=== PATIENT | male | born 1995 | race African-American/Black ===

== ENCOUNTER 2016-11-11 13:51 | Emergency (ER) ==
[2016-11-11 14:05] VITALS: BP 135/86
--- NOTE | 2016-11-11 14:28 | PROVIDER DOCUMENTATION ---
HPI-EENT General - General Chief Complaint: Cold Symptoms Stated Complaint: COLD SX Time Seen by Provider: 11/11/16 14:11 Source: patient Allergies/Adverse Reactions: Patient Allergies Allergy/AdvReac Type Severity Reaction Status Date / Time erythromycin base Allergy ANAPHYLAXIS Verified 01/18/16 14:53 Penicillins Allergy ANAPHYLAXIS Verified 01/18/16 14:53 Home Medications: Home Medication List Medication Instructions Recorded Confirmed Last Taken Type Prednisone 20 mg PO DAILY #12 tablet 11/11/16 Unknown Rx - History of Present Illness-EENT General Nature of Presenting Problem: 21 y/o WM c/o CP with leaning forward, intermittent epistaxis, sinus congestion x 2 weeks. Pt states he was treated for sinusitis about one month ago, but only took 4-5 days of Abx. Denies any fever/chills. States using mucinex and nasonex. Denies any other sxs. Review of Systems - Adult - REVIEW OF SYSTEMS - ADULT Constitutional: reports: no symptoms reported. denies: chills, fever Eyes: reports: no symptoms reported. denies: blurred vision, double vision Ears, Nose, Mouth & Throat: reports: see HPI, epistaxis, sinus problem. denies : ear pain, throat pain Cardiovascular: reports: no symptoms reported. denies: chest pain, palpitations Respiratory: reports: no symptoms reported. denies: dyspnea on exertion, shortness of breath Gastrointestinal: reports: no symptoms reported. denies: nausea, vomiting Genitourinary: reports: no symptoms reported. denies: dysuria, frequency Musculoskeletal: reports: no symptoms reported. denies: joint pain, joint swelling, muscle aches Integumentary: reports: no symptoms reported. denies: nail changes, rash Neurological: reports: no symptoms reported. denies: headache/migraines, numbness, paresthesia Psychiatric: reports: no symptoms reported Endocrine: reports: no symptoms reported. denies: cold intolerance, heat intolerance Hematologic/Lymphatic: reports: no symptoms reported. denies: easy bruising, prolonged bleeding Allergic/Immunologic: reports: no symptoms reported All Other Systems: Reviewed and Negative Past History - Adult - PAST MEDICAL HISTORY-ADULT Review of Records: reports: Nursing Assessment Review, Medications Reviewed Major Childhood Illnesses: reports: denies history Other Conditions: reports: denies history - PRIOR SURGERIES/PROCEDURES Surgical/Procedure History: reports: hernia repair - PRIOR HOSPITALIZATIONS Prior Hospitalizations: reports: none - IMMUNIZATION STATUS Childhood Immunizations: See Nurse Assessment Flu Vaccine: See Nurse Assessment - FAMILY HISTORY Family History: reviewed, not pertinent - SOCIAL HISTORY Smoking: quit greater than 1 year Occupation: [employer] through Physical Exam- EENT - Physical Exam EENT Initial Vital Signs Reviewed: Yes General Appearance: alert, no apparent distress, thin Eye Exam: bilateral eye: normal inspection Ear Exam: bilateral ear: auricle normal Nasal Exam: normal inspection. negative: sinus tenderness Throat Exam: normal mouth inspection, pharynx normal Neck: supple, normal inspection. negative: lymphadenopathy Respiratory: lungs clear, normal breath sounds. negative: crackles, rales, rhonchi, stridor, wheezing, plerual rub Cardiovascular: regular rate, rhythm. negative: bradycardia, tachycardia Back Exam: normal inspection Extremity: normal gait Integumentary: normal color, normal turgor, warm/dry Neurologic: negative: aphasia Psych/Mental Status: normal mood/affect, normal thought content, normal thought process, oriented x 3 Progress - PLAN OF CARE/RESULTS Progress/Plan/Lab Results: Orders Category Date Time Status CHEST-2 VIEWS [RAD] Stat Exams 11/11/16 14:18 Draft EKG [EKG] Stat Ther 11/11/16 14:31 Draft Vital Signs Temp Pulse Resp BP Pulse Ox 11/11/16 14:02 97.1 F L 91 H 20 135/86 99 erythromycin base Allergy (Verified 01/18/16 14:53) ANAPHYLAXIS Penicillins Allergy (Verified 01/18/16 14:53) ANAPHYLAXIS No Home Medications 01/18/16 Discussed results and f/u with pt. - XRAY 1 XRAY Study: Chest Impression: See EMR Report (No acute disease, per Dr. Boyd) Departure - Departure Time of Disposition Order: 14:52 DIAGNOSIS: URI (upper respiratory infection) Qualifiers: URI type: unspecified URI Qualified Code(s): J06.9 - Acute upper respiratory infection, unspecified Disposition: HOME 01 Certified Medical Emergency: Emergent Condition: Stable Additional Instructions: Continue taking mucinex and nasonex. Take medications as directed. Return if symptoms get worse. ED Follow Up Instructions: You have been treated by a care provider in the Emergency Department. These instructions are being provided to you so you can have an understanding of how to care for yourself upon discharge. Upon discharge from the Emergency Department, you are responsible for making arrangements for follow-up care by a physician of your choice. Take all prescribed medications as directed. Return to the Emergency Department immediately for any new or worsening symptoms. You may call the Physician Referral phone number at [phone] to obtain a list of Physicians who are taking new patients. Prescriptions: Prednisone 20 mg PO DAILY #12 tablet Referrals: None,PCP [Primary Care Provider] - Attestation - Physician/ NING Attestation Patient care was provided by Advanced Practice Provider:: Yes Advanced Practice Provider:: Mile Pederson Advanced Practice Provider documentation review:: The Mid-level provider documentation, treatment plan and medical decision making was reviewed by the physician who agrees with all treatment and medical decision making by the MLP.
--- NOTE | 2016-11-11 14:41 | EKG Report ---
Test Performed on : 11/11/2016 2:31:35 PM Test Reason : CP Blood Pressure : / mmHG Vent. Rate : 074 BPM Atrial Rate : 074 BPM P-R Int : 170 ms QRS Dur : 092 ms QT Int : 356 ms P-R-T Axes : 076 084 064 degrees QTc Int : 395 ms Normal sinus rhythm. Normal ECG No previous ECGs available Unconfirmed Result
--- NOTE | 2016-11-11 14:48 | Diag Imaging Result Document ---
PROCEDURE NAME: CHEST-2 VIEWS - 11/11/2016 FRONTAL AND LATERAL CHEST, 2 VIEWS: FINDINGS: The lungs are well expanded. The heart is not enlarged. The vessels are not distended. No infiltrates. No pleural effusions. IMPRESSION: No pneumonia.
--- NOTE | 2016-11-11 15:18 | ED EKG INTERP ---
EKG Interpretation - EKG Time of EKG reading by physician:: 14:31 EKG Read and Signed by:: Bismark Cleveland EKG Interpretation (*Must complete 3 of following elements*): Normal Rate: 74 Rhythm: NSR [place]: normal QRS: normal [place] Interval: normal ST Wave: normal Comments: Normal Sinus Rhythm
== END 2016-11-11 15:09 | disposition home or self-care (01) ==
LOC: P.ED 13:51
DX: J06.9 Acute upper respiratory infection, unspecified (principal); R04.0 Epistaxis; R09.81 Nasal congestion; Z87.891 Personal history of nicotine dependence
CPT/HCPCS: 71020; 93005; 99283